=== PATIENT | male | born 1965 | race Caucasian/White ===

== ENCOUNTER 2022-11-22 23:06 | Emergency (ER) | payer BC ==
[2022-11-23 00:54] VITALS: BP 125/85; PULSE 103
== END 2022-11-23 00:51 | disposition home or self-care (01) ==
LOC: JD.ED 23:06
DX: R07.82 Intercostal pain (principal); I10 Essential (primary) hypertension; E66.9 Obesity, unspecified; F17.210 Nicotine dependence, cigarettes, uncomplicated; Z68.30 Body mass index [BMI] 30.0-30.9, adult; Z91.048 Other nonmedicinal substance allergy status; Z79.899 Other long term (current) drug therapy
CPT/HCPCS: 71046; 71046-26; 99283

== ENCOUNTER 2024-04-15 13:04 | Emergency (ER) | payer BC ==
[2024-04-15 14:19] VITALS: BP 143/75; PULSE 71
== END 2024-04-15 14:19 | disposition home or self-care (01) ==
LOC: JD.ED 13:04
DX: L40.3 Pustulosis palmaris et plantaris (principal); F17.210 Nicotine dependence, cigarettes, uncomplicated; I10 Essential (primary) hypertension; E78.00 Pure hypercholesterolemia, unspecified; Z88.8 Allergy status to other drugs, medicaments and biological substances; Z79.899 Other long term (current) drug therapy
CPT/HCPCS: 99283